=== PATIENT | male | born 1995 | race Caucasian/White ===

== ENCOUNTER 2017-03-25 21:39 | Emergency (ER) | payer MEDICAID ==
--- NOTE | 2017-03-25 22:24 | ERPHSYRPT ---
- History of Present Illness Source: patient, police Exam Limitations: clinical condition Patient Subjective Stated Complaint: PT ARRIVES PER LAW ENFORCEMENT FOR INTERMEDIATE CLEARANCE. PT HAS NO COMPLAINTS AT THIS TIME. PT IN CUSTODY FOR SUSPECTED INTOXICATION. Triage Nursing Assessment: PT IS AOX3, AMBULATORY TO COT WITH NO DIFFICULTIES, RESPS ARE EASY AND NON LABORED. SKIN IS PWD. Physician History: Patient to ER at this time with law enforcement for drunk driving arrest with breathalyzer 0.26 and very agitated immature crying and uncooperative behavior. Patient here for medical clearance for incarceration. Patient denies taking anything but the ear this evening. Drinks frequently. Works for [employer]. Denies any recent injuries or any other substance use or abuse. Timing/Duration: today Severity: severe Associated Symptoms: No nausea, No vomiting, No abdominal pain, No heartburn, No diaphoresis, No cough, No chills, No chest pain, No fever, No headaches, No loss of appetite, No malaise, No rash, No syncope, No seizure, No weakness Allergies/Adverse Reactions: No Known Drug Allergies Allergy (Unverified 03/25/17 21:49) Hx Tetanus, Diphtheria Vaccination/Date Given: Yes Hx Influenza Vaccination/Date Given: No Hx Pneumococcal Vaccination/Date Given: No Immunizations Up to Date: Yes - Review of Systems Constitutional: Other (as noted in history of present illness) Eyes: No Symptoms Ears, Nose, & Throat: No Symptoms Respiratory: No Symptoms Cardiac: No Symptoms Abdominal/Gastrointestinal: No Symptoms Genitourinary Symptoms: No Symptoms, Penile Discharge Musculoskeletal: No Symptoms Skin: No Symptoms Psychological: Alcohol Abuse, Anxiety, Emotional Lability, Mood Changes Endocrine: No Symptoms Hematologic/Lymphatic: No Symptoms Immunological/Allergic: No Symptoms All Other Systems: Reviewed and Negative - Past Medical History Pertinent Past Medical History: No - Past Surgical History Past Surgical History: Yes - Social History Smoking Status: Current every day smoker How long have you smoked: 1 Drug Use: none Patient Lives Alone: No - Nursing Vital Signs Nursing Vital Signs: Initial Vital Signs Temperature 98.7 F 03/25/17 21:43 Pulse Rate 90 03/25/17 21:43 Respiratory Rate 18 03/25/17 21:43 Blood Pressure 102/76 03/25/17 21:43 O2 Sat by Pulse Oximetry 96 03/25/17 21:43 Pain Scale Pain Intensity 0 - Physical Exam General Appearance: moderate distress, alert, anxiety Eye Exam: PERRL/EOMI Ears, Nose, Throat Exam: normal ENT inspection Neck Exam: normal inspection Respiratory Exam: normal breath sounds, lungs clear Cardiovascular Exam: regular rate/rhythm, normal heart sounds, normal peripheral pulses Gastrointestinal/Abdomen Exam: soft, normal bowel sounds, No tenderness Rectal Exam: deferred Back Exam: normal inspection, normal range of motion, No CVA tenderness Extremity Exam: normal inspection, normal range of motion Neurologic Exam: alert, oriented x 3, confusion, agitation, intoxicated appearance, No motor weakness, No abnormal gait Skin Exam: normal color (everything) Lymphatic Exam: No adenopathy SpO2 Interpretation: normal SpO2: 96 Oxygen Delivery: Room Air Ordered Tests: Active Orders 24 hr Category Date Time Status Urine Triage Profile Stat Lab 03/25/17 22:18 Completed Lab/Rad Data: Laboratory Results 03/25/17 Range/Units 22:18 Urine Opiates Level NEG. (NEGATIVE) Ur Methadone NEG. (NEGATIVE) Urine Barbiturates NEG. (NEGATIVE) Ur Phencyclidine (PCP) NEG. (NEGATIVE) Urine Amphetamine NEG. (NEGATIVE) U Benzodiazepine Level NEG. (NEGATIVE) Urine Cocaine NEG. (NEGATIVE) Urine Marijuana (THC) NEG. (NEGATIVE) - Progress Progress: improved, re-examined Progress Note: 03/25/17 23:17Urine drug screen was negative. Blood alcohol was not ordered as intended on patient admission however patient had point 2. 6 with a breathalyzer approximately 2 hours ago and should be under legal limit at this time this cooperative and alert and oriented enough for incarceration at this time and stable medically. - Departure Time of Disposition: 23:17 Departure Disposition: Retirement/Half-Way Clinical Impression: Alcohol intoxication Qualifiers: Complication of substance-induced condition: uncomplicated Qualified Code(s): F10.920 - Alcohol use, unspecified with intoxication, uncomplicated Condition: Stable Critical Care Time: No Referrals: DOCTOR,NO FAMILY [Primary Care Provider] -
[2017-03-25 23:34] VITALS: BP 112/78; PULSE 80
[2017-03-26 03:50] VITALS: O2SAT 96
== END 2017-03-25 23:34 | disposition home or self-care (01) ==
LOC: ED 21:39
DX: F10.920 Alcohol use, unspecified with intoxication, uncomplicated (principal)
CPT/HCPCS: 80307; 99281; 99283